=== PATIENT | female | born 1980 | race Caucasian/White ===

== ENCOUNTER 2017-09-15 11:40 | Inpatient (IN) | payer OTHER, MEDICAID ==
[2017-09-15] MEDS ORDERED: NICOTINE POLACRILEX 2 MG GUM B PRN (14:33)
[2017-09-15] MEDS ORDERED: LORazepam 0.5 MG TAB PO PRN (14:33)
[2017-09-15] MEDS ORDERED: ACETAMINOPHEN 325 MG TAB PO PRN (14:33)
[2017-09-15] MEDS ORDERED: OLANZapine DISINTEGR 10 MG TAB PO PRN (14:33)
[2017-09-15] MEDS ORDERED: MAGNESIUM HYDROXIDE 30 ML UDCUP PO PRN (14:33)
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
[2017-09-15] MEDS: MAG HYDROX/AL HYDROX/SIMETH 30 ML UDCUP PO PRN (16:53)
[2017-09-15] MEDS: ZIPRASIDONE HCL 40 MG CAP PO SCH (17:22)
[2017-09-16] MEDS: ZIPRASIDONE HCL 40 MG CAP PO SCH ×2 (08:26→18:22)
[2017-09-16] MEDS: PANTOPRAZOLE SODIUM 40 MG TAB PO SCH (08:26)
[2017-09-16] MEDS ORDERED: [UNRECOGNIZED DRUG - OTHER] PR SCH (11:15)
[2017-09-16] MEDS ORDERED: PREPARATION H 51 GM CRTUBE PR SCH (11:15)
[2017-09-16] MEDS ORDERED: PREPARATION H 51 GM CRTUBE PR PRN (11:22)
--- NOTE | 2017-09-16 13:23 | CPEKG ---
Heart Rate: 99 RR Interval: 606 P-R Interval: 132 QRSD Interval: 82 QT Interval: 360 QTC Interval: 462 P Deerbrook: 34 QRS Deerbrook: 12 T Wave Deerbrook: 5 EKG Severity - NORMAL ECG - EKG Impression: SINUS RHYTHM EKG Impression: ANTERIOR T-WAVE ABNORMALITIES. Electronically Signed By: Cecelia Cintron 16-Sep-2017 16:34:48
[2017-09-16] MEDS: MAG HYDROX/AL HYDROX/SIMETH 30 ML UDCUP PO PRN (13:30)
--- NOTE | 2017-09-16 15:03 | BCON ---
[f rep st] BEHAVIORAL HEALTH CONSULTATION INTERNAL MEDICINE CONSULTATION DATE OF CONSULTATION: 09/16/2017 REFERRING PHYSICIAN: Isiah Almonte MD REASON FOR REFERRAL: Medical clearance for inpatient behavioral health stay. HISTORY OF PRESENT ILLNESS: This patient was transferred to [facility] from [facility] where she had been seen in the emergency department for increased psychosis. She has a history of schizoaffective disorder. She was admitted for further psychiatric care. She currently complains of umbilical pain or of her umbilicus feeling uneven and reports that it is due to history of surgery in which maggots were placed in her abdomen. She also reports that several months ago, a diaphragm as well as 2 earrings were placed in her vagina. Otherwise, she is without acute complaints. PAST MEDICAL HISTORY: 1. Obesity. 2. GERD. 3. Rosa's esophagus. 4. Irritable bowel syndrome. PAST SURGICAL HISTORY: She reports a history of a hemorrhoid procedure and of a cholecystectomy, and per record review, there is a history of strabismus surgery. MEDICATIONS: Prior to admission: 1. Omeprazole 40 mg p.o. daily. 2. Ziprasidone 40 mg p.o. daily. ALLERGIES: There are allergies listed to Haldol. SOCIAL HISTORY: She lives with her mother. She has a history of developmental delay and has held jobs only for a short time in the past. She is a nonsmoker and does not use alcohol. REVIEW OF SYSTEMS: She reports considerable weight loss in recent months, and she does not have any reason for it. She denies snoring. She denies cough or dyspnea. She is not in pain, other than umbilical discomfort. She denies nausea, vomiting, constipation, or diarrhea, but reports that prior to admission , she would vomit every time she would move her bowels. She reports sometimes she has difficulty urinating. Otherwise, a 10-point review of systems is negative. PHYSICAL EXAM: VITAL SIGNS: Blood pressure is 128/89. Heart rate is 91. Respiratory rate is 14. Oxygen saturation is 91% on room air. Temperature is 36.5 degrees centigrade. GENERAL: This is an obese woman, appears her chronologic age, cooperative, in no acute distress. HEENT: Extraocular movements are intact. Pupils are equal, round, and reactive to light. Mucous membranes are moist. Dentition is in good condition. She has a crowded airway , Mallampati class 4. NECK: Supple. HEART: There is a regular rate and rhythm, with no murmurs, rubs, or gallops. LUNGS: Clear to auscultation bilaterally. ABDOMEN: Soft, nontender, nondistended, with normoactive bowel sounds and no deformity to the umbilicus. EXTREMITIES: There is no cyanosis, clubbing, or edema. NEUROLOGIC: She is alert and oriented to month, day of the month and year. She is not fully oriented to her location. Cranial nerves 2-12 are grossly intact. There is no focal weakness. Sensation is intact to light touch, and gait is within normal limits. LABORATORY STUDIES: From [place], basic metabolic profile was overall within normal limits, but for an elevated glucose at 156. Liver function tests revealed a slightly elevated ALT at 76 and otherwise were within normal limits. TSH was normal at 1.19. CBC was normal. Urine drug screen was negative for drugs of abuse. ASSESSMENT/RECOMMENDATIONS: 1. Mental health issues pending further evaluation and management per Psychiatry and the mental health team. 2. Obesity. Consider avoiding medications that would cause further weight gain. 3. Hyperglycemia. Hemoglobin A1c has been ordered, and this is appropriate. She might benefit from metformin as first-line drug should she have an elevated hemoglobin A1c. 4. Elevated transaminase. A repeat liver function panel has been ordered. 5. Gastroesophageal reflux disease and Rosa's esophagus. Continue omeprazole. 6. Complaints of history of maggots in her umbilicus and of foreign objects in her vagina may well be related to psychosis. If she does have any vaginal symptoms, would investigate further. Advised that Nursing be on the alert for any such symptoms. 7. Report of vomiting. She has no electrolyte disturbances or anion gap that would be consistent with history of frequent vomiting. Advise monitoring for vomiting while she is on the inpatient behavioral health unit. 8. Report of weight loss. Advise monitoring for normal p.o. Intake. I see no medical contraindications to this patient's continued stay in the inpatient behavioral health unit or to any psychiatric medications or procedures. Thank you very much for including me in the care of this patient, and please do not hesitate to contact me or the hospitalist service should there be a need for further medical evaluation. /[id number]/MODL MTDD
[2017-09-16] MEDS: [UNRECOGNIZED DRUG - OTHER] PR PRN (18:29)
[2017-09-17] MEDS: ZIPRASIDONE HCL 40 MG CAP PO SCH ×2 (08:30→17:29)
[2017-09-17] MEDS: PANTOPRAZOLE SODIUM 40 MG TAB PO SCH (08:30)
[2017-09-17] MEDS: MAG HYDROX/AL HYDROX/SIMETH 30 ML UDCUP PO PRN ×3 (09:46→20:58)
[2017-09-17] MEDS: [UNRECOGNIZED DRUG - OTHER] PR PRN (15:59)
--- NOTE | 2017-09-17 17:48 | SOAPPROG ---
SOAP Progress Note Assessment/Plan: Assessment: Plan: 09/17/17 17:48 Psychosis: Remains paranoid with IOR's. Will CCM. Subjective: LATE ENTRY FOR 09/16/17. Pt seen, discussed with staff, chart reviewed. Reports feeling "afraid." Talks about the smell at her home and how she believes she was being poisoned by the neighbors. She states "they are still watching me." States, "I'm not safe anywhere." Focused primarily on physical sx's inc: abdominal pain due to "worms in my belly", diarrhea, nausea, vomiting, and "a really bad cold" with coughing and sneezing. Agreeable to increasing the Geodon to BID. Tolerating this well so far. Slept better last night. Objective: Vital Signs Temp Pulse Resp BP Pulse Ox 36.4 C 104 H 16 123/86 H 92 09/17/17 06:00 09/17/17 06:00 09/17/17 06:00 09/17/17 06:00 09/17/17 06:00 - Time Spent With Patient Time Spent With Patient: 25" ICD10 Worksheet Patient Problems: Problems Problem Status Onset Schizoaffective disorder, bipolar type Acute - ICD10 Problem Qualifiers (1) Schizoaffective disorder, bipolar type
--- NOTE | 2017-09-17 17:54 | SOAPPROG ---
HALEY Progress Note Assessment/Plan: Assessment: Plan: 09/17/17 17:48 Psychosis: Remains paranoid with IOR's. Will CCM. 09/17/17 17:55 Schizoaffective D/o: Improved. CCM. Subjective: Pt seen, discussed with staff. Reports feeling "a lot better today." States several times that she feels "calmer" with the increased dose of Geodon. Appears brighter, out in the milieu and attending groups. States she feels safe her today. Discussed her life inc: family interactions, hobbies, food, daily routines, etc. She states she is happy with her life and enjoys spending time with her mother and sisters. Objective: Vital Signs Temp Pulse Resp BP Pulse Ox 36.4 C 104 H 16 123/86 H 92 09/17/17 06:00 09/17/17 06:00 09/17/17 06:00 09/17/17 06:00 09/17/17 06:00 MSE: Adequately groomed, pleasant and coop. Affect remains blunted, though brighter, calmer. Mood is "better." TP generally linear. TC reveals less paranoia, no "smells." ICD10 Worksheet Patient Problems: Problems Problem Status Onset Schizoaffective disorder, bipolar type Acute - ICD10 Problem Qualifiers (1) Schizoaffective disorder, bipolar type
[2017-09-18] MEDS: PANTOPRAZOLE SODIUM 40 MG TAB PO SCH (08:07)
[2017-09-18] MEDS: ZIPRASIDONE HCL 40 MG CAP PO SCH ×2 (08:07→19:15)
[2017-09-18] MEDS: MAG HYDROX/AL HYDROX/SIMETH 30 ML UDCUP PO PRN ×2 (10:59→21:01)
[2017-09-18] MEDS: [UNRECOGNIZED DRUG - OTHER] PR PRN (14:57)
--- NOTE | 2017-09-18 15:34 | SOAPPROG ---
SOBARBARA Progress Note Assessment/Plan: Assessment: Plan: 09/17/17 17:48 Psychosis: Remains paranoid with IOR's. Will [facility]. 09/17/17 17:55 Schizoaffective D/o: Improved. [facility]. 09/18/17 15:33 Schizoaffective D/o: Continued improvement. [facility]. Family meeting tomorrow to review d/c plan. Subjective: Pt seen, discussed with staff. Remains pleasant and interactive. Offers no c/o 's. Compliant with meds. Continues to feel "calmer." Staff note her to be guarded and reserved, but cooperative. Objective: Vital Signs Temp Pulse Resp BP Pulse Ox 36.3 C 90 20 123/86 H 91 L 09/18/17 06:00 09/18/17 06:00 09/18/17 06:00 09/17/17 06:00 09/18/17 06:00 MSE: Calm, coop. Affect is blunted, stable, approp. Mood is "good." TP generally linear. TC reveals continued paranoia, but much improved. - Time Spent With Patient Time Spent With Patient: 15" ICD10 Worksheet Patient Problems: Problems Problem Status Onset Schizoaffective disorder, bipolar type Acute - ICD10 Problem Qualifiers (1) Schizoaffective disorder, bipolar type
[2017-09-19 06:24] VITALS: BP 111/60
[2017-09-19] MEDS: ZIPRASIDONE HCL 40 MG CAP PO SCH (07:46)
[2017-09-19] MEDS: PANTOPRAZOLE SODIUM 40 MG TAB PO SCH (07:46)
[2017-09-19] MEDS: [UNRECOGNIZED DRUG - OTHER] PR PRN (07:46)
== END 2017-09-19 12:10 | disposition home or self-care (01) | DRG 885 ==
LOC: BBEH 12:57
PROVIDERS: ADMIT Psychiatry & Neurology Psychiatry; ATTEND Psychiatry & Neurology Psychiatry
DX: F25.9 Schizoaffective disorder, unspecified (principal); E66.9 Obesity, unspecified; K21.9 Gastro-esophageal reflux disease without esophagitis; R73.9 Hyperglycemia, unspecified; K22.70 Barrett's esophagus without dysplasia; F84.9 Pervasive developmental disorder, unspecified